=== PATIENT | female | born 1980 | race Caucasian/White ===

== ENCOUNTER 2022-01-02 09:20 | Emergency (ER) | payer OTHER ==
[~2022-01-02] VITALS: Ht 160 cm; Wt 52.2 kg
--- NOTE | 2022-01-02 09:37 | NUR ---
PT IS IN ROOM #2A. DR WHITE EVALUATED THE PT.
[2022-01-02] MEDS ORDERED: KETOROLAC TROMETHAMINE 30 MG INJ ONE (09:58)
[2022-01-02] MEDS ORDERED: KETOROLAC TROMETHAMINE 30 MG INJ IM ONE (10:00)
[2022-01-02] MEDS ORDERED: HYDR-3972 PO (10:17)
[2022-01-02] MEDS ORDERED: IBUP-1955 PO (10:17)
--- NOTE | 2022-01-02 10:43 | NUR ---
PT WAS D/C'd TO HOME. D/C INSTRUCTIONS GIVEN TO THE PT BY DR WHITE.
[2022-01-02 10:44] VITALS: BP 132/78
[2022-01-02] MEDS ORDERED: HYDR-4209 PO (20:09)
[2022-01-02] MEDS ORDERED: IBUP-1953 PO (20:09)
== END 2022-01-02 10:43 | disposition home or self-care (01) ==
LOC: ER 09:20
DX: S90.32XA Contusion of left foot, initial encounter (principal); W20.1XXA Struck by object due to collapse of building, initial encounter; Y92.009 Unspecified place in unspecified non-institutional (private) residence as the place of occurrence of the external cause
CPT/HCPCS: 99284; 73630; 96372; J1885; A4663